=== PATIENT | male | born 1985 | race American Indian/Alaskan Native ===

== ENCOUNTER 2021-12-11 09:37 | Emergency (ER) | payer SELFPAY ==
[2021-12-11] MEDS ORDERED: ONDANSETRON 4 MG ODT TAB PO ONE (10:08)
[2021-12-11] MEDS ORDERED: BUTALB/ACETAMINOPHEN/CAFFEINE TAB PO ONE (10:08)
--- NOTE | 2021-12-11 10:12 | Emergency Department Report ---
ED Eye Problem HPI - General Chief complaint: Eye Problems Stated complaint: BLURRY VISION Time Seen by Provider: 12/11/21 10:04 Source: patient Mode of arrival: Ambulatory Limitations: No Limitations - History of Present Illness Initial comments: 36-year-old male with a past medical history of ADD presents to the ER today with complaints of blurry vision both eyes. Patient states that this morning when he woke up he had a frontal headache. He thought it was because he slept his contacts and so he removed his contact this morning. After removing his contacts, he noticed that patient was a little bit more blurry than typical so he decided to put on his glasses. He states that even with the glasses he noticed that his vision was still blurry. He denies eye pain, redness or drainage. He states that he noticed that he has been having these intermittent headaches for the past year. Location of the headaches has been random. He is also had photosensitivity with the headaches and nausea and this morning he woke up with 1 of these typical headaches. He states that in the past year he has not followed up with the primary care doctor or seen a provider for it. He assumed that they were migraines. He denies any head injury. He states that caffeine seem to help the headache. He states that he did drink some red bull this morning which did help the headache but he states that he is mainly concerned about the blurry vision. He reports no speech changes, focal extremity weakness, chest pain, shortness of breath, difficulty swallowing or any additional symptoms. He states that his contacts and eye glass prescriptions are up to date. He states that he was told once before he had borderline diabetes but due to lack of insurance he has never followed up consistently with the PCP. He is covid 19 vaccinated (Efren BONILLA chief complaint: vision change -: This morning - Related Data Previous Rx's Medication Instructions Recorded Last Taken Type Butalb/Acetamin/Caff 50-325-40 1 tab PO Q6HR PRN #12 tab 12/11/21 Unknown Rx [Fioricet 50-325-40] Ondansetron [Zofran Odt] 4 mg PO Q8HR #15 tab.rapdis 12/11/21 Unknown Rx Allergies Allergy/AdvReac Type Severity Reaction Status Date / Time No Known Allergies Allergy Unverified 12/11/21 09:53 ED Review of Systems ROS: Stated complaint: BLURRY VISION Other details as noted in HPI ED Past Medical Hx - Medications Home Medications: Home Medications Medication Instructions Recorded Confirmed Last Taken Type Butalb/Acetamin/Caff 50-325-40 1 tab PO Q6HR PRN #12 tab 12/11/21 Unknown Rx [Fioricet 50-325-40] Ondansetron [Zofran Odt] 4 mg PO Q8HR #15 tab.rapdis 12/11/21 Unknown Rx ED Physical Exam - General Limitations: No Limitations ED Course Vital Signs 12/11/21 12/11/21 12/11/21 09:53 10:28 11:58 Temperature 97.9 F 97.8 F Pulse Rate 83 80 Respiratory 18 16 Rate Blood Pressure 116/85 144/98 [Right] O2 Sat by Pulse 98 98 98 Oximetry ED Medical Decision Making - Radiology Data Radiology results: report reviewed [facility], [place] [address] [place] [address] Cat Scan Report Signed Patient: AKTERIN HUNT MR#: [id number] : 1985 Acct:[id number] Age/Sex: 36 / M ADM Date: 12/11/21 Loc: ED Attending Dr: Ordering Physician: HENRY TOLEDO Date of Service: 12/11/21 Procedure(s): CT head/brain wo con Accession Number(s): [id number] cc: HENRY TOLEDO CT head/brain wo con INDICATION / CLINICAL INFORMATION: 36 years Male; Headache/blurry vision. TECHNIQUE: Routine CT head without contrast. All CT scans at this location are performed using CT dose reduction for ALARA by means of automated exposure control. COMPARISON: None. FINDINGS: BRAIN / INTRACRANIAL CONTENTS: The brain parenchyma demonstrate appropriate attenuation. The ventricular system is within normal limits in size and configuration. There is no clear CT evidence of acute intracranial hemorrhage or significant mass effect. ORBITS: No significant abnormality of visualized orbits. SINUSES / MASTOIDS: No significant abnormality in the visualized paranasal sinuses or mastoid air cells. CRANIOCERVICAL JUNCTION: No significant abnormality. ADDITIONAL FINDINGS: None. IMPRESSION: 1. There is no CT evidence of acute intracranial process. Signer Name: Jaime Melendez MD Signed: 12/11/2021 11:14 AM Workstation Name: [id number] Transcribed By: MR Dictated By: Jaime Melendez MD Electronically Authenticated By: Jaime Melendez MD Signed Date/Time: 12/11/21 1114 DD/ 1112 TD/TT: - Medical Decision Making CT head shows nothing acute. Fingerstick BS was 111. Patient currently resting comfortably. He is currently laying on bed in room on phone. He is not toxic and he is well appearing. He currently is awake alert and oriented x3; No apparent focal neuro deficits on exam. His gait is normal. He has no meningeal signs. No eye redness, drainage, periorbital redness or swelling noted. His VS are all normal. Symptoms could be related to more so of atypical migraine. He also admits that he has been under a lot of stress lately, has not been sleeping well and he also has a at home. At this time I do not suspect a stroke, meningitis, TIA, or any other acute emergent conditions warranting additional testing at this time. Patient will be given referral information to local PCP as well as [facility] for further evaluation especially if symptoms persist. Recommend lots of rest, he will be given medication to help with headache, but he understands to return to the ER if symptoms worsens. Patient was stable at time of discharge. Critical care attestation.: If time is entered above; I have spent that time in minutes in the direct care of this critically ill patient, excluding procedure time. ED Disposition Clinical Impression: Migraine, Blurry vision, bilateral Disposition: 01 HOME / SELF CARE / HOMELESS Is pt being admited?: No Does the pt Need Aspirin: No Condition: Stable Instructions: Migraine Headache, [id number], Visual Disturbances Additional Instructions: Take the fioricet as prescribed as needed for headaches. Take the Zofran as prescribed as needed for nausea or vomiting. I do recommend that you follow-up with your primary care doctor or neurologist in the next 1 to 2 weeks if his symptoms persist. Return to the ER immediately if your symptoms worsens in any way. Prescriptions: Butalb/Acetamin/Caff 50-325-40 [Fioricet 50-325-40] 1 tab PO Q6HR PRN #12 tab PRN Reason: Headache Ondansetron [Zofran Odt] 4 mg PO Q8HR #15 tab.rapdis Referrals: PRIMARY CAREMD [Primary Care Provider] - 3-5 Days ALTAF RAMIRES MD [Staff Physician] - 3-5 Days [facility] [Provider Group] - 3-5 Days Forms: Work/School Release Form(ED) Time of Disposition: 11:27
--- NOTE | 2021-12-11 11:20 | Cat Scan Report ---
CT head/brain wo con INDICATION / CLINICAL INFORMATION: 36 years Male; Headache/blurry vision. TECHNIQUE: Routine CT head without contrast. All CT scans at this location are performed using CT dos e reduction for ALARA by means of automated exposure control. COMPARISON: None. FINDINGS: BRAIN / INTRACRANIAL CONTENTS: The brain parenchyma demonstrate appropriate attenuation. The ventricu lar system is within normal limits in size and configuration. There is no clear CT evidence of acute intracranial hemorrhage or significant mass effect. ORBITS: No significant abnormality of visualized orbits. SINUSES / MASTOIDS: No significant abnormality in the visualized paranasal sinuses or mastoid air valeriano ls. CRANIOCERVICAL JUNCTION: No significant abnormality. ADDITIONAL FINDINGS: None. IMPRESSION: 1. There is no CT evidence of acute intracranial process. Signer Name: Jaime Melendez MD Signed: 12/11/2021 11:14 AM Workstation Name: [id number]
[2021-12-11 11:59] VITALS: BP 144/98
== END 2021-12-11 11:59 | disposition home or self-care (01) ==
LOC: ED 09:37
DX: G43.909 Migraine, unspecified, not intractable, without status migrainosus (principal); H53.8 Other visual disturbances
CPT/HCPCS: 70450; 82962; 99283; J3490; Q0162